=== PATIENT | male | born 2005 | race Caucasian/White ===

== ENCOUNTER 2025-03-24 20:14 | Emergency (ER) | payer OTHER, SELFPAY ==
--- NOTE | ~2025-03-24 | US_ITS ---
CLINICAL HISTORY: Scrotal mass on the left side question abscess US Scrotum US Vascular Interrogation of Scrotum (Testicle) COMPARISON: None provided FINDINGS: Right testicle: 4.5 x 2.0 x 3.3 cm. Normal echotexture. No mass. Normal Doppler color blood flow. Normal arterial and venous waveforms. No evidence of torsion. Left testicle: 5.0 x 2.2 x 3.2 cm. Normal echotexture. No mass. Normal Doppler color blood flow. Normal arterial and venous waveforms. No evidence of torsion. Mild hyperemia in the left epididymal head and tail and the right epididymal tail. No hydrocele. No varicocele. Hypoechoic ovoid structure in the left lateral scrotal soft tissues measuring 4.3 x 1.3 x 1.4 cm with adjacent soft tissue hyperemia. IMPRESSION: Probable abscess in the left lateral scrotal soft tissues. Possible bilateral epididymitis. This document has been electronically signed by: Garth Cowan MD on 03/25/2025 04:14:47
[2025-03-24 20:18] VITALS: BP 131/62; PULSE 88; RESP 16; TEMP 37.2; O2SAT 98; BMI 18.8
--- NOTE | 2025-03-25 00:23 | ED.SKABFB ---
HPI - Skin/Abscess/Foreign Bdy General Chief complaint: Skin/Abscess/Foreign Body Stated complaint: Bump on testicle Time Seen by Provider: 03/25/25 00:08 History of Present Illness HPI narrative: Patient is 20-year-old male presented today with having a bump to the left side of his testicle. Patient claims that there is no pain to the testicle itself. There is no penile discharge. Patient is in a monogamous relationship. Patient is from home. Related Data Previous Rx's ?Medication ?Instructions ?Recorded doxycycline hyclate 100 mg tablet 100 mg PO BID #20 tabs 03/25/25 Allergies Allergy/AdvReac Type Severity Reaction Status Date / Time No Known Allergies Allergy Verified 03/24/25 20:21 Review of Systems Review of Systems: No fever no chills. No systemic complaints PMFSH Past Medical History Attestation statement: The following information was validated with the patient. Social History Social History Advance Directives: No Advance Directives Information Provided: Yes Do you have a plan to hurt others: No Plan Physical Exam Exam: Exam: Appearance: Alert. Oriented X3. No acute distress. Eyes: Pupils equal, round and reactive to light. ENT: Pharynx normal. Neck: Normal inspection. Neck supple. No lymph nodes noted. No crepitus CVS: Normal heart rate and rhythm. Pulses normal. Normal S1 and S2 Respiratory: No respiratory distress. Breath sounds normal. No Wheezing. No rales Abdomen: Soft and nontender. No rigidity. No distention. good BS x4 exam patient has a fluctuant mass noted in the scrotum on the left side is proximally 3 cm x 5 cm in size. The testicle itself are nontender. There is cremasteric reflex. There is no discharge in stripping of the penis. Skin: Skin warm and dry. Normal skin color. Normal skin turgor. Extremities: No lower extremity edema. Neurovascular intact to all extremities. No Lacerations. No Rash Neuro: Oriented X 3. No motor deficit. No sensory deficit. Moving all extermities. No slurred speech Vital Signs: Vital Signs: Last Vital Signs Temp 98.9 F 03/24/25 20:18 Pulse 88 03/24/25 20:18 Resp 16 03/24/25 20:18 BP 131/62 03/24/25 20:18 Pulse Ox 98 03/24/25 20:18 O2 Del Method Room Air 03/24/25 20:18 BMI result Body Mass Index 18.8 Course Reevaluation(s) Reevaluation #1: Patient received in sign-out at change of shift pending ultrasound. The ultrasound confirms what appears to be an abscess. The patient also appears to have bilateral epididymitis. We will treat the patient with ceftriaxone and doxycycline. I discussed abstinence for the next 2 weeks. See procedure note for abscess drainage Time: 05:08 Medications Administered Discontinued Medications Generic Name Dose Route Start Last Admin Trade Name Freq PRN Reason Stop Dose Admin Ibuprofen 400 mg 03/25/25 00:56 03/25/25 01:02 Ibuprofen 400 Mg Tablet PO 03/25/25 00:57 400 mg ONCE ONE Administration Medical Decision Making Medical Decision Making [facility] Narrative: Question abscess on the left scrotum. Ultrasound is pending. Currently in stable condition. Patient is urine was grossly negative for infection. GC chlamydia was sent. Differential Diagnosis Differential Diagnoses: The differential diagnosis associated with the presentation includes Abscess, epididymitis Admission/Observation Consideration of admission/observation: Escalation of care including admission/observation considered Lab Data [facility] Lab Attestation statement: I reviewed the patient's lab results. Labs: Lab Results 03/25/25 Range/Units 00:40 Urine Color Dark Yellow Urine Appearance Clear Urine pH 5.5 (5.0-9.0) Ur Specific Hendrix >= 1.030 H (1.005-1.025) Urine Protein Trace (Neg-Trace) mg/dL Urine Glucose (UA) Negative (Negative) mg/dL Urine Ketones Trace (Negative) mg/dL Urine Blood Negative (Negative) Urine Nitrite Negative (Negative) Ur Leukocyte Esterase Negative (Negative) Urine RBC 0-2 (0-2) /HPF Urine WBC 0-5 (0-5) /HPF Ur Squamous Epith Cells 0-2 (0-2) /HPF Urine Bacteria None Seen (None Seen) Hyaline Casts 0-2 (0-2) /LPF Ur N gonorrhoeae DNA (PCR) NOT DETECTED (Not Detect.) Ur Chlamydia DNA (PCR) NOT DETECTED (Not Detect.) Procedures Abscess I/D Site: scrotum Side (if applicable): left Local Anesthetic: lidocaine 1% and with epi Amount of anesthesia used (mL): 1.5 Technique: incised with blade (Eleven blade) Amount of fluid expressed (mL): 5 Sent for culture/gram staining?: No Irrigation: Yes Packing used?: none Complications: other (No complications) Discharge Plan Discharge Clinical Impression: Abscess of scrotal wall, Acute epididymitis Patient Disposition: Home, Self-Care Instructions: Epididymitis (ED), Scrotal Pain (ED) Additional Instructions: Your ultrasound confirmed a scrotal abscess which was drained. Your ultrasound also showed epididymitis, we did test him for gonorrhea and chlamydia. You were given antibiotics with ceftriaxone injection and doxycycline. Take the doxycycline twice daily for the next 10 days Apply warm compresses as well pain Return for new or worsening symptoms Prescriptions: New doxycycline hyclate 100 mg tablet 100 mg PO BID Qty: 20 0RF Stand Alone Forms: Work/School Release Print Language: Georgian
[2025-03-25 00:53] LABS: Appearance Urine Clear; Glucose Urine UA Negative (Negative); PH 5.5 (5.0-9.0); Specific Gravity - Urine >= 1.030 (1.005-1.025)
[2025-03-25 01:00] VITALS: BP 131/62; PULSE 88; RESP 16; TEMP 37.2; O2SAT 98
[2025-03-25] MEDS: Lidocaine HCl 1%/Epi 1:100,000 10 ML VIAL SUBCUT (01:00)
[2025-03-25 02:14] LABS: CT PCR Urine NOT DETECTED (Not Detect.); NG PCR Urine NOT DETECTED (Not Detect.)
[2025-03-25] MEDS: cefTRIAXone sodium 500 MG, Lidocaine HCl 1 % MPF 1 ML IM (05:33)
[2025-03-25 05:43] VITALS: BP 131/62; PULSE 88; RESP 16; TEMP 37.2; O2SAT 98
== END 2025-03-25 05:45 | disposition home or self-care (01) ==
PROVIDERS: Emergency Provider Emergency Medicine Emergency Medical Services
DX: N49.2 Inflammatory disorders of scrotum (principal); R10.32 Left lower quadrant pain
CPT/HCPCS: 55100; 76870; 81001; 87491; 87591; 93975; 96372; 99284; J0696; J2003; J2004

== ENCOUNTER → 2025-03-25 00:20 | Outpatient (BNV) | payer OTHER, SELFPAY | PROVIDERS: Emergency Provider Emergency Medicine Emergency Medical Services; Visit Provider Radiology Diagnostic Radiology | DX: N49.2 Inflammatory disorders of scrotum (principal) | CPT/HCPCS: 76870 ==